=== PATIENT | male | born 1995 | race African-American/Black ===

== ENCOUNTER 2019-07-09 14:25 | Emergency (ER) | payer OTHER ==
[~2019-07-09] VITALS: Ht 177.8 cm; Wt 84.1 kg
[2019-07-09] MEDS ORDERED: LIDOCAINE 2% MDV 20 ML VIAL SC ONE (15:15)
[2019-07-09 16:08] VITALS: BP 138/68
== END 2019-07-09 16:13 | disposition home or self-care (01) ==
LOC: M ED 14:25
DX: S61.210A Laceration without foreign body of right index finger without damage to nail, initial encounter (principal); W26.8XXA Contact with other sharp object(s), not elsewhere classified, initial encounter; Y92.89 Other specified places as the place of occurrence of the external cause; Y99.0 Civilian activity done for income or pay